=== PATIENT | male | born 1975 | race Asian ===

== ENCOUNTER 2016-12-16 05:46 | Emergency (ER) | payer MEDICAID ==
--- NOTE | 2016-12-16 05:56 | EDPHY ---
H & P Stated Complaint: anxiety HPI/ROS: HPI CHIEF COMPLAINT: Anxiety, panic attack HISTORY OF PRESENT ILLNESS: This patient very pleasant 41-year-old male, significant past medical history for anxiety and panic attacks does not take any daily medications regularly for this. He presents to the emergency room by private vehicle with his stating that he is having anxiety and panic attack. Patient reports to me that he drove for lift this evening he got home he made cheese pizza and he smoked marijuana states about 15 minutes after smoking marijuana he felt very anxious felt like his body could not move he got panicky this went on for an hour to 2 hours he is slightly feeling better since arriving to the emergency room. Denies any focal complaints specifically chest pain, shortness of breath, vomiting headache or recent illness. He does tell me that maybe he had a reaction to marijuana any smoking his vape pen. Past Medical History: Anxiety, panic attacks Past Surgical History: no recent surgical history Social History: denies daily use of drugs alcohol tobacco except for marijuana regularly daily, works for [employer], lives locally Family History: noncontributory ROS REVIEW OF SYSTEMS: A comprehensive 10 point review of systems is otherwise negative aside from elements mentioned in the history of present illness. Exam Constitutional appears well nontoxic,triage nursing summary reviewed, vital signs reviewed, awake/alert. Eyes normal conjunctivae and sclera, EOMI, PERRLA. HENT normal inspection, atraumatic, moist mucus membranes, no epistaxis, neck supple/ no meningismus, no raccoon eyes. Respiratory clear to auscultation bilaterally, normal breath sounds, no respiratory distress, no wheezing. Cardiovascular rate normal, regular rhythm, no murmur, no edema, distal pulses normal. Gastrointestinal soft, non-tender, no rebound, no guarding, normal bowel sounds, no distension, no pulsatile mass. Genitourinary no CVA tenderness. Musculoskeletal no midline vertebral tenderness, full range of motion, no calf swelling, no tenderness of extremities, no meningismus, good pulses, neurovascularly intact. Skin pink, warm, & dry, no rash, skin atraumatic. Neurologic awake, alert and oriented x 3, AAOx3, moves all 4 extremities equally, motor intact, sensory intact, CN II-XII intact, normal cerebellar, normal vision, normal speech. Psychiatric normal mood/affect. Heme/Lymph/Immune no lymphadenopathy. Differential Diagnosis: includes but is not limited to in a particular order acute anxiety, panic attack, marijuana adverse reaction Medical Decision Making: plan for this patient as he appears well nontoxic normal vital signs is , cooperative I will give 1 mg p. o. Ativan p. o. hydrate him and re-evaluate him. Re-evaluation: [id number]: Re-evaluation at this time patient resting comfortably no acute distress. Feels comfortable discharge. He is, cooperative. He denies anxiety this time. Tells me 1 mg p. o. Ativan made a great improvement. He understands return emergency room if develops any worsening symptoms questions or concerns. Source: Patient - Personal History Current Tetanus/Diphtheria Vaccine: Unsure Current Tetanus Diphtheria and Acellular Pertussis (TDAP): Unsure - Medical/Surgical History Hx Asthma: No Hx Chronic Respiratory Disease: No Hx Diabetes: No Hx Cardiac Disease: No Hx Renal Disease: No Hx Cirrhosis: No Hx Alcoholism: No Hx HIV/AIDS: No Hx Splenectomy or Spleen Trauma: No Other PMH: anxiety - Social History Smoking Status: Never smoked Constitutional: Initial Vital Signs Heart Rate 73 12/16/16 05:50 Respiratory Rate 18 12/16/16 05:50 Blood Pressure 122/70 H 12/16/16 05:50 O2 Sat (%) 100 12/16/16 05:50 O2 Delivery Mode Room Air Allergies/Adverse Reactions: No Known Allergies Allergy (Unverified 12/16/16 05:50) Home Medications: Medication Instructions Recorded Multi-Vitamin Daily 12/16/16 Medical Decision Making - Data Points Medications Given: Discontinued Medications Lorazepam (Ativan) 1 mg PO ONCE ONE Stop: 12/16/16 06:02 Last Admin: 12/16/16 06:05 Dose: 1 mg Departure - Departure Disposition: Home, Routine, Self-Care Clinical Impression: Anxiety Condition: Good Instructions: Anxiety (ED) Additional Instructions: 1. Return emergency room if develops any worsening symptoms includes nausea, vomiting or you have further anxiety or panic attack. Referrals: NONE *PRIMARY CARE P,. [Primary Care Provider] - As per Instructions
[2016-12-16] MEDS ORDERED: LORazepam 1 MG TAB PO ONE (06:01)
[2016-12-16 07:03] VITALS: BP 96/60; PULSE 83; RESP 17; O2SAT 97
== END 2016-12-16 07:02 | disposition home or self-care (01) ==
DX: F41.9 Anxiety disorder, unspecified (principal)